=== PATIENT | female | born 1980 | race Two or more races ===

== ENCOUNTER 2025-02-18 20:20 | Inpatient (IN) | payer OTHER ==
[~2025-02-18] VITALS: Ht 154.9 cm; Wt 97.5 kg
[2025-02-18 20:46] LABS: LEUKOCYTE ESTERASE ,URINE NEGATIVE (Neg); NITRITES, URINE NEGATIVE (Neg); OCCULT BLOOD,URINE LARGE (Neg); UA COLLECTION TYPE CLN CATCH MIDSTREAM
[2025-02-18 20:51] LABS: MEAN PLATELET VOLUME 8.1 FL (7.4-10.4); RED CELL DISTRIBUTION WIDTH 13.8 % (11.5-14.5)
[2025-02-18 20:55] LABS: SQUAMOUS EPITHELIAL CELL,UR MODERATE /LPF (FEW)
[2025-02-18 22:35] LABS: CREATININE 1.28 MG/DL (0.40-0.90); TOTAL CARBON DIOXIDE 25.6 MMOL/L (24-32); eCRCL 43 ML/MIN; eGFR 46 ML/MIN
--- NOTE | 2025-02-18 23:41 | Physician Documentation ---
History of Present Illness Chief Complaint: Abdominal Pain w/vomiting Stated Complaint: NAUSEA Time Seen by MD: 23:40 OK to notify your PCP?: Yes Source: patient, RN/MD, RN notes reviewed, old records Mode of Arrival: POV Exam Limitations: no limitations HPI BED 10 This patient is a 44 y/o female who presents to ED with chief complaint of nausea/vomiting. Patient reports she felt fine yesterday and last night, but upon waking this morning felt nauseated. She states shortly after waking she has been having vomiting on and off most of the day today. In addition to her nausea , she has also been having right sided abdominal pain. She denies taking any Ozympic of GLP-1 medicatoins. Patient reports she does take be metformin and glipizide normally and has not missed any doses. She does note that she has history of diabetes since two kept her insulin last night however. Patient denies any associated symptoms at this time. Patient denies any alleviating or exacerbating factors. Medication Reconciliation Allergies: Coded Allergies: meloxicam (Verified Allergy, Mild, RASH, 02/18/25) Scheduled Glipizide (Glipizide Er), 2 TAB PO BID, (Reported) Insulin Glargine-Yfgn (Insulin Glargine-Yfgn), ACHS, (Reported) Metformin Hcl* (Metformin ER*), 2 TAB PO Q12H, (Reported) Past Medical History Past Medical History: Migraine, Diabetes Past Surgical History: noncontributory Smoking Status: Never smoker Alcohol Use: None Drug Use: none Review of Systems All Other Systems at this time: Reviewed and Negative Physical Exam Vital Signs: Temperature: 98.6, Source: Oral, Heart Rate: 74, Respiratory Rate: 16, BP: 146/89, Pulse Oximetry: 97, Weight: 97.500 Oxygen Flow Rate: 0 Physical Exam General: The patient is well developed, well nourished, nontoxic appearing and is in no acute distress. Skin: [place], warm and dry with no rashes. HEENT: Head was normocephalic and atraumatic. Eyes - pupils equal, round, reactive to light and accommodation. Extraocular movements were intact. Conjunctivae were nonicteric. Ears - bilateral tympanic membranes were normal. The mouth and oropharynx were clear with moist mucous membranes. There were no pharyngeal exudates or erythema. Neck: Supple and nontender. There was no jugular venous distention, lymphadenopathy, thyromegaly or masses. Chest: Clear to auscultation bilaterally without wheezes, rales or rhonchi. No accessory muscle use. No dullness to percussion. Heart: Rate regular and rhythmic. S1, S2. No murmurs. Palpation of the chest wall was normal. No rubs or thrills. Abdomen: Tenderness to palpation over the left with a lower quadrant. Otherwise soft and nondistended. Positive bowel sounds. No guarding or rebound. No hepatosplenomegaly or palpable masses. Extremities: No cyanosis, clubbing or edema. The patient moves all extremities. Pulses were equal and symmetric. Neurologic: Cranial nerves II-XII were intact. Sensation was intact to light touch throughout. Motor strength was 5/5 in all four extremities. Deep tendon reflexes were intact in both upper and lower extremities. Psychologic: The patient was oriented to person, place and time. The patient demonstrated appropriate judgement and insight. Progress Progress Note 0338: Spoke with [facility] concerning patient's care. [facility] has accepted and case number is #[id number] Results/Orders Reviewed/noted all lab results: Yes Results/Orders Orders - PIOTR ARCINIEGA MD Hcg, Ur Ql (02/18/25 20:31) Completed Orders - PIOTR ARCINIEGA MD Cbc/Diff (02/18/25 20:31) Lipase (02/18/25 20:31) CMP (02/18/25 20:31) Ua W/Microscopic, Cult If Ind (02/18/25 20:35) Vital Signs 02/18/25 02/18/25 20:27 22:23 Temp 98.6 Pulse 80 74 Resp 16 B/P (MAP) 190/91 146/89 (108) Pulse Ox 97 97 O2 Flow Rate 0 0 Laboratory Tests Test 02/18/25 20:35 02/18/25 20:42 Urine Specimen Description Cln catch midstream Urine Color Yellow Urine Clarity Slightly cloudy Urine pH 6.0 Urine Specific Upper Tract 1.020 Urine Protein Trace Urine Glucose (UA) >=1000 H Urine Ketones 40 H Urine Occult Blood Large H Urine Nitrite Negative Urine Bilirubin Negative Urine Urobilinogen 0.2 Urine Leukocyte Esterase Negative Urine RBC 20-50 Urine WBC 0-4 Urine Squamous Epithelial Cells Moderate Urine Bacteria Few Urine Culture Indicated Not ind Volume Urine Centrifuged 7 ml Urine Comment Low volume White Blood Count 15.8 H Red Blood Count 4.54 Hemoglobin 13.2 Hematocrit 38.4 Mean Corpuscular Volume 84.7 Mean Corpuscular Hemoglobin 29.0 Mean Corpuscular Hemoglobin Concent 34.2 Red Cell Distribution Width 13.8 Platelet Count 270 Mean Platelet Volume 8.1 Neutrophils (%) (Auto) 83.9 H Lymphocytes (%) (Auto) 11.4 L Monocytes (%) (Auto) 3.7 Eosinophils (%) (Auto) 0.5 Basophils (%) (Auto) 0.5 Neutrophils # (Auto) 13.2 H Lymphocytes # (Auto) 1.8 Monocytes # (Auto) 0.6 Eosinophils # (Auto) 0.1 Basophils # (Auto) 0.1 CBC Comment Sodium Level 133 L Potassium Level 4.1 Chloride Level 99 Carbon Dioxide Level 25.6 Anion Gap 8 Blood Urea Nitrogen 15 Creatinine 1.28 H Estimated GFR/1.73 m2 46 BUN/Creatinine Ratio 11.7 Glucose Level 250 H Calcium Level 9.1 Total Bilirubin 0.7 Aspartate Amino Transf (AST/SGOT) 51 H Alanine Aminotransferase (ALT/SGPT) 74 Alkaline Phosphatase 125 H Total Protein 7.8 Albumin 3.6 Globulin 4.2 Albumin/Globulin Ratio 0.9 L Lipase 110 H Chemistry Comments EKG/XRAY/CT/US/VASC/MRI CT : Interpreted By: both CT: abdomen/pelvis With Contrast?: No Impression [address] [address] [place] Patient: MRAISSA MARIE Medical Record: [id number] [facility] : 1980, Age: 44 Sex: Female Location: ER Patient Status: REG ER Service Date/Time: 02/18/2537 Ordering Physician: PIOTR ARCINIEGA MD Exam: CT ABDOMEN PELVIS Exam: CT CT ABDOMEN PELVIS W/ IV CONTRAST History: ABD PAIN Comparison Study: None TECHNIQUE: A digital lay out worker image was obtained. During the uneventful, intravenous administration of contrast material, multislice data acquisition was obtained through the abdomen and pelvis. The data set was subsequently reconstr ucted into multiplanar reformats. RADIATION DOSE: CTDI vol 32.13 mGy. DLP 1769.25 mGy.cm Findings: Liver: Unremarkable. Spleen: Unremarkable. Pancreas: Unremarkable. Gallbladder: Unremarkable. Adrenals: Unremarkable Kidneys: A punctate calcification is seen in the region of the distal left ureter near the ureterovesicular junction. There is minimal upstream left hydro ureteronephrosis and mild left perinephric stranding. There is a punctate nonobstructing left renal calculus. Too small to characterize lesions within the right kidney. No right hydronephrosis. Pelvic Viscera: Unremarkable. Vasculature: Unremarkable. Retroperitoneum: Unremarkable. Bowel: No bowel obstruction. The appendix is normal. Musculoskeletal: Unremarkable. Soft tissues: Unremarkable Lungs: Minimal basilar atelectasis. Impression: 1. Punctate calculus situated in the region of the distal left ureter near the ureterovesicular junction. Mild left perinephric stranding and minimal left hydroureteronephrosis. 2. Punctate nonobstructing bilateral renal calculi. 3. Additional findings as detailed. Electronically Signed by:GEORGIE DUNHAM MD Date & Time: 02/19/25110 Dictated by: GEORGIE DUNHAM MD Dictation date and time: 02/19/25110 Primary Care Provider: NO PRIMARY CARE PROVIDER cc: PIOTR ARCINIEGA MD ~ Departure Time of Disposition: 02:49 Disposition: 09 ADMITTED INPATIENT Admitted to Inpatient Unit: yes, to hospitalist Impression: Primary Impression: Kidney stones Additional Impressions: Renal colic Pancreatitis Qualified Codes: K85.90 - Acute pancreatitis without necrosis or infection, unspecified Nausea & vomiting Qualified Codes: R11.2 - Nausea with vomiting, unspecified Condition: Guarded Referrals: NO PRIMARY CARE PROVIDER (PCP) Signature Scribe Signature: Scribed for Piotr Arciniega MD by Payton Frederick. 02/19/25 01:22 Attestation: The note accurately reflects work and decisions made by me.Piotr Arciniega MD 02/18/25 23:41 PIOTR ARCINIEGA MD Feb 18, 2025 23:41
[2025-02-18] MEDS ORDERED: iohexol 300mg/ml 100ml inj. ONE (23:53)
[2025-02-19] MEDS: ondansetron/PF 4mg/2ml inj IV ONE (00:07)
[2025-02-19 00:09] LABS: URINE HCG NEGATIVE (NEG)
[2025-02-19 00:17] LABS: ETHANOL < 10 MG/DL (<10)
--- NOTE | 2025-02-19 01:14 | RADIOLOGY REPORT ---
Exam: CT CT ABDOMEN PELVIS W/ IV CONTRAST History: ABD PAIN Comparison Study: None TECHNIQUE: A digital steam frame operator image was obtained. During the uneventful, intravenous administration of c ontrast material, multislice data acquisition was obtained through the abdomen and pelvis. The data s et was subsequently reconstructed into multiplanar reformats. RADIATION DOSE: CTDI vol 32.13 mGy. DLP 1769.25 mGy.cm Findings: Liver: Unremarkable. Spleen: Unremarkable. Pancreas: Unremarkable. Gallbladder: Unremarkable. Adrenals: Unremarkable Kidneys: A punctate calcification is seen in the region of the distal left ureter near the ureteroves icular junction. There is minimal upstream left hydroureteronephrosis and mild left perinephric stra nding. There is a punctate nonobstructing left renal calculus. Too small to characterize lesions wi thin the right kidney. No right hydronephrosis. Pelvic Viscera: Unremarkable. Vasculature: Unremarkable. Retroperitoneum: Unremarkable. Bowel: No bowel obstruction. The appendix is normal. Musculoskeletal: Unremarkable. Soft tissues: Unremarkable Lungs: Minimal basilar atelectasis. Impression: 1. Punctate calculus situated in the region of the distal left ureter near the ureterovesicular junct ion. Mild left perinephric stranding and minimal left hydroureteronephrosis. 2. Punctate nonobstructing bilateral renal calculi. 3. Additional findings as detailed.
[2025-02-19] MEDS: normal saline 1000ML IV soln IVB ONE (01:51)
[2025-02-19] MEDS: normal saline 1000ML IV soln IV ONE (03:17)
[2025-02-19] MEDS: piperacillin/tazo 3.375gm/50ml 50 ML IV ONE (03:22)
[2025-02-19] MEDS: magnesium sulf-water 2g/50mL 50 ML IV ONE (03:22)
[2025-02-19] MEDS ORDERED: GLIP-297 PO (03:26)
[2025-02-19] MEDS ORDERED: METF-900 PO (03:27)
[2025-02-19] MEDS ORDERED: INSU100V55 (03:28)
[2025-02-19] MEDS ORDERED: ondansetron/PF 4mg/2ml inj IV PRN ×2 (04:05→04:55)
[2025-02-19] MEDS ORDERED: magnesium sulf-water 2g/50mL 50 ML IV PRN (04:05)
[2025-02-19] MEDS ORDERED: mag hydrox/Alum hydrox/simeth 30ml oral suspension PO PRN (04:05)
[2025-02-19] MEDS ORDERED: magnesium sulf-water 4G/100mL 100 ML IV PRN (04:05)
[2025-02-19] MEDS ORDERED: magnesium Cl slow-release 64mg tablet PO PRN (04:05)
[2025-02-19] MEDS ORDERED: magnesium hydroxide 30ml (MOM) UD suspension PO PRN (04:05)
[2025-02-19] MEDS ORDERED: potassium Cl 20 mEq SR tablet PO PRN ×2 (04:05)
[2025-02-19] MEDS ORDERED: potassium Cl 40MEQ/1/2NS 520ml 520 ML IV PRN (04:05)
[2025-02-19] MEDS ORDERED: glucagon, human recombinant 1mg kit SUBCUT PRN (04:30)
[2025-02-19] MEDS ORDERED: dextrose 50%-water 50ml dispensing syringe IV PRN ×2 (04:30)
[2025-02-19] MEDS ORDERED: DEXTROSE 15 GM of carb/4 tabs (each vial/BOTTLE has 4 tablets) PO PRN ×2 (04:30)
--- NOTE | 2025-02-19 04:34 | HISTORY AND PHYSICAL-Residence ---
History & Physical Providers to CC Resident Creating Document: JOSE ALFREDO RAYMUNDO RES ~ History of Present Illness Reason for Admit\Complaint: Abdominal pain History of Present Illness This is a 44-year-old female patient with a past medical history of insulin- dependent type 2 diabetes mellitus and migraines presented to the hospital with the complaints of abdominal pain associated with nausea and vomiting. The pain began yesterday in the morning, around the umbilicus with radiation to the left side into the back, and vomiting acidic contents. The patient is currently traveling to [place] with the family and is originally from [place]. Denies any fevers, chills, dysuria, hematuria. Denies prior history of similar complaints. Denies any new medications. Allergies: Coded Allergies: meloxicam (Verified Allergy, Mild, RASH, 02/18/25) Home Medications Home Medications Active Reported Insulin Glargine-Yfgn 100 Unit/Ml Vial ACHS Metformin ER* (Metformin HCl) 500 Mg Tab.sr.24h 2 Tab PO Q12H 30 Days Glipizide Er (Glipizide) 5 Mg Tab.er2.24 2 Tab PO BID Past Medical History Past Medical History Insulin-dependent type 2 diabetes mellitus, migraines Past Surgical History Surgical History Comment No past surgical history Past Social History Social History Comment Nonsmoker, no alcohol or illicit drug abuse. Lives at home with the family. 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 Ambulates on her own without assistive devices. Alcohol Use: None Drug Use: None ROS ROS As stated above in the HPI, otherwise all systems are reviewed and negative. Exam Vitals: Vital Signs Date Time Temp Pulse Resp B/P (MAP) Pulse Ox O2 Delivery O2 Flow Rate FiO2 02/19/25 03:30 65 16 118/76 (90) 99 0 02/18/25 20:27 98.6 General: General: Awake and Alert, no acute distress. Morbidly obese HEENT: Conjunctiva pink, Sclera clear, Mucus Membranes moist. Resp: Unlabored. Lungs clear to auscultation bilaterally. Heart: Regular Rate and rhythm, normal S1 and S2 without murmur, rub or gallop. Abdomen: Soft and non tender no organomegaly Extremities: No cyanosis,clubbing or edema. Skin: Warm and Dry. Diagnostic Data Last Recorded Lab Results: 02/18/25204102/18/252041 Advance Care Planning Advanced Care plannin - 30 Minutes Additional Plan Acute abdominal pain: Likely secondary to left hydroureteronephrosis Mild STACY likely secondary to above Nonobstructing renal calculus noted on the abdomen/pelvis CT Mild leukocytosis secondary to the above. Procalcitonin normal Lipase mildly elevated, pancreas unremarkable on imaging Continue IV fluids at a rate of 100 cc/hour NS. IV Zosyn for antibiotic therapy Zofran PRN for nausea/vomiting Follow up blood cultures and urine cultures Recommend straining of urine Consult urology in a.m. Acute kidney injury: Likely secondary to ATN Continue IVF NM renal scan ordered for left renal function Spot sodium, protein and creatinine ordered Closely monitor BMP Strict I&O monitoring Type 2 diabetes mellitus: Insulin-dependent Follow A1c Last insulin dose on Tuesday Glucosuria and ketonuria evident. No acidosis noted in the serum Likely the etiology behind the renal stone; suspect the renal stone to be uric acid in nature Education on outpatient alkalization of the urine Place the patient on hyperglycemia/hypoglycemia protocol- Lantus 20 units, medium dose sliding scale insulin Migraine headaches: PRN Tylenol Morphine to be used sparingly Lines: PIV Code status: Full code Diet: NPO until urology evaluation; carb controlled diet after DVT prophylaxis: SCDs; heparin after urology evaluation GI prophylaxis: Protonix daily Jose Alfredo Raymundo PGY3, Internal medicine resident Date of Service: Feb 19, 2025 Billing Provider: ZENY BARRETO MD, DEEPANJALI, RES Feb 19, 2025 04:34
[2025-02-19] MEDS: normal saline 1000ml 1,000 ML IV SCH (04:42)
[2025-02-19 06:49] LABS: APTT 26 SECONDS (22-32); INR 1.0 INR
[2025-02-19 07:30] VITALS: BP 128/73; PULSE 74; RESP 16; TEMP 97.9; O2SAT 98
[2025-02-19 07:35] VITALS: RESP 18
[2025-02-19] MEDS: INSULIN LISPRO 100 UNIT/ML INSULN.PEN MULTI-DOSE SQ SCH (07:35)
[2025-02-19] MEDS ORDERED: enoxaparin 40mg/0.4ml syringe SUBCUT SCH (08:00)
[2025-02-19] MEDS: K and/or MAG REPLACEMENT MC SCH (08:00)
[2025-02-19 08:30] LABS: URINE AMPHETAMINE SCREEN NEGATIVE (Neg); URINE BARBITUATE SCREEN NEGATIVE (Neg); URINE BENZODIAZEPINES SCREEN NEGATIVE (Neg); URINE CANNABINOID SCREEN NEGATIVE (Neg); URINE COCAINE SCREEN NEGATIVE (Neg); URINE METHADONE SCREEN NEGATIVE (Neg); URINE OPIATE SCREEN POSITIVE (Neg); URINE PHENCYCLIDINE SCREEN NEGATIVE (Neg)
[2025-02-19 09:27] LABS: MEAN PLATELET VOLUME 8.7 FL (7.4-10.4); RED CELL DISTRIBUTION WIDTH 14.1 % (11.5-14.5)
[2025-02-19 09:47] LABS: CREATININE 0.97 MG/DL (0.40-0.90); TOTAL CARBON DIOXIDE 26.1 MMOL/L (24-32); eCRCL 57 ML/MIN; eGFR 63 ML/MIN
[2025-02-19 10:00] VITALS: BP 119/73; PULSE 61; RESP 16; TEMP 97.9; O2SAT 97
[2025-02-19] MEDS: docusate sod 100mg capsule PO SCH (10:43)
[2025-02-19] MEDS ORDERED: piperacillin/tazo 3.375gm/50ml 50 ML IV SCH (11:00)
--- NOTE | 2025-02-19 17:25 | RADIOLOGY REPORT ---
ULTRASOUND ABDOMEN, LIMITED RIGHT UPPER QUADRANT: REASON FOR EXAM: ruq pain TECHNIQUE: Real-time sector scans in the transverse and longitudinal planes were obtained through th e right upper quadrant of the abdomen. FINDINGS: The liver is enlarged at 19.4 cm in length. The liver is diffusely echogenic. There is hep atopetal flow in the portal vein. There is no intrahepatic nor extrahepatic biliary ductal dilatation . The common bile duct measures 3 mm. No gallstones or sludge are identified. There is no gallblad radha wall thickening nor pericholecystic fluid. There is no sonographic Carvajal's sign. The visualized portion of the pancreas is unremarkable. The right kidney measures 12.4 cm. The right kidney is poorly visualized due to body habitus and bow el gas. There is no hydronephrosis of the right kidney. The visualized portions of the abdominal aorta demonstrate no evidence of aneurysmal dilatation. The visualized inferior vena cava is unremarkable. There is no free fluid identified in the right upper quadrant. IMPRESSION: Enlarged, hyperechoic liver. This may be secondary to steatosis or another diffuse hepatic process. Correlate clinically and with liver function tests. No sonographic evidence of gallbladder pathology.
[2025-02-19 18:00] VITALS: BP 110/69; PULSE 77; RESP 16; TEMP 98; O2SAT 96
[2025-02-19] MEDS: lactobacillus rhamnosus 10,000 MMU CELLS/CAPSULE PO SCH (21:06)
[2025-02-19] MEDS: insulin glargine (Lantus) pen - multi-dose SQ SCH (21:13)
[2025-02-19 22:00] VITALS: BP 143/82; PULSE 74; RESP 15; TEMP 97.6; O2SAT 98
[2025-02-20 05:50] LABS: MEAN PLATELET VOLUME 8.3 FL (7.4-10.4); RED CELL DISTRIBUTION WIDTH 14.1 % (11.5-14.5)
[2025-02-20 06:00] VITALS: BP 132/74; PULSE 77; RESP 15; TEMP 98.2; O2SAT 99
[2025-02-20 06:23] LABS: CHOL/HDL RATIO 5.8 (0.00-4.99); CREATININE 0.81 MG/DL (0.40-0.90); LDL CHOLESTEROL 112 MG/DL (50-100); TOTAL CARBON DIOXIDE 26.2 MMOL/L (24-32); eCRCL 68 ML/MIN; eGFR 78 ML/MIN
[2025-02-20] MEDS: CefTRIAXone/D5W-Rocephin 1gm 50 ML IV SCH (07:33)
[2025-02-20 10:00] VITALS: BP 130/74; PULSE 62; RESP 15; TEMP 97.9; O2SAT 98
[2025-02-20] MEDS: normal saline 1000ml 1,000 ML IV ONE (10:37)
[2025-02-20] MEDS ORDERED: CEFD300C3 PO (13:25)
[2025-02-20] MEDS ORDERED: tamsulosin capsule PO (13:25)
[2025-02-20] MEDS ORDERED: LACT1CAP26 PO (13:25)
--- NOTE | 2025-02-20 22:55 | DISCHARGE SUMMARY-Residence ---
Discharge Summary Providers to CC Resident Creating Document: ANGEESTRADALuis Daniel ESPINOZA, RES ~ Discharge Summary Admission Diagnosis: ACUTE PYELONEPHRITIS Hospital Course DATE OF ADMISSION: DATE OF DISCHARGE: Condition on DC: Stable Discharge Summary: Laboratory Tests Test 02/18/25 23:57 02/19/25 03:17 02/19/25 03:21 02/19/25 06:25 Magnesium Level 1.6 MG/DL Ethyl Alcohol Level < 10 MG/DL Lactic Acid Level 1.4 MMOL/L Procalcitonin 0.05 NG/ML Prothrombin Time 10.5 SECONDS INR International Normalized Ratio 1.0 INR Activated Partial Thromboplast Time 26 SECONDS Coagulation Comments Potassium Level 3.9 MMOL/L Hemoglobin A1c 10.7 % Test 02/19/25 07:40 02/19/25 07:53 02/19/25 09:00 02/19/25 12:31 Urine Opiates Screen Positive Urine Methadone Screen Negative Urine Fentanyl Screen Negative Urine Barbiturates Screen Negative Urine Phencyclidine Screen Negative Urine Amphetamines Screen Negative Urine Benzodiazepines Screen Negative Urine Cocaine Screen Negative Urine Cannabinoids Screen Negative Drug Screen Comment Glucometer 184 mg/dl 173 mg/dl White Blood Count 10.9 X10'3 Red Blood Count 4.14 X10'6 Hemoglobin 12.0 g/dl Hematocrit 35.7 % Mean Corpuscular Volume 86.4 FL Mean Corpuscular Hemoglobin 28.9 PG Mean Corpuscular Hemoglobin Concent 33.5 g/dL Red Cell Distribution Width 14.1 % Platelet Count 236 X10'3 Mean Platelet Volume 8.7 FL Neutrophils (%) (Auto) 68.6 % Lymphocytes (%) (Auto) 23.0 % Monocytes (%) (Auto) 5.6 % Eosinophils (%) (Auto) 1.7 % Basophils (%) (Auto) 1.1 % Neutrophils # (Auto) 7.5 X10'3 Lymphocytes # (Auto) 2.5 X10'3 Monocytes # (Auto) 0.6 X10'3 Eosinophils # (Auto) 0.2 X10'3 Basophils # (Auto) 0.1 X10'3 CBC Comment Sodium Level 135 MMOL/L Potassium Level 3.8 MMOL/L Chloride Level 103 MMOL/L Carbon Dioxide Level 26.1 MMOL/L Anion Gap 6 Blood Urea Nitrogen 14 MG/DL Creatinine 0.97 MG/DL Estimated GFR/1.73 m2 63 ML/MIN BUN/Creatinine Ratio 14.4 Glucose Level 189 MG/DL Calcium Level 8.3 MG/DL Total Bilirubin 0.6 MG/DL Aspartate Amino Transf (AST/SGOT) 39 U/L Alanine Aminotransferase (ALT/SGPT) 60 U/L Alkaline Phosphatase 98 IU/L Total Protein 6.8 G/DL Albumin 2.9 G/DL Globulin 3.9 G/DL Albumin/Globulin Ratio 0.7 Chemistry Comments Test 02/19/25 17:26 02/19/25 21:10 02/20/25 04:52 02/20/25 07:24 Glucometer 269 mg/dl 224 mg/dl 128 mg/dl White Blood Count 9.6 X10'3 Red Blood Count 4.04 X10'6 Hemoglobin 11.9 g/dl Hematocrit 35.2 % Mean Corpuscular Volume 87.0 FL Mean Corpuscular Hemoglobin 29.4 PG Mean Corpuscular Hemoglobin Concent 33.8 g/dL Red Cell Distribution Width 14.1 % Platelet Count 256 X10'3 Mean Platelet Volume 8.3 FL Neutrophils (%) (Auto) 63.0 % Lymphocytes (%) (Auto) 28.7 % Monocytes (%) (Auto) 5.5 % Eosinophils (%) (Auto) 2.2 % Basophils (%) (Auto) 0.6 % Neutrophils # (Auto) 6.1 X10'3 Lymphocytes # (Auto) 2.8 X10'3 Monocytes # (Auto) 0.5 X10'3 Eosinophils # (Auto) 0.2 X10'3 Basophils # (Auto) 0.1 X10'3 CBC Comment Sodium Level 138 MMOL/L Potassium Level 3.8 MMOL/L Chloride Level 105 MMOL/L Carbon Dioxide Level 26.2 MMOL/L Anion Gap 7 Blood Urea Nitrogen 10 MG/DL Creatinine 0.81 MG/DL Estimated GFR/1.73 m2 78 ML/MIN BUN/Creatinine Ratio 12.3 Glucose Level 133 MG/DL Calcium Level 7.9 MG/DL Albumin 3.0 G/DL Triglycerides Level 268 MG/DL Cholesterol Level 179 MG/DL LDL Cholesterol 112 MG/DL HDL Cholesterol 31 MG/DL Cholesterol/HDL Ratio 5.8 Lipase 248 U/L Chemistry Comments Date of Service: Feb 20, 2025 Billing Provider: PK LUIS MD, SOWMYA MANJARI, RES Feb 20, 2025 22:55
[2025-02-21] MEDS ORDERED: pantoprazole 40mg Tablet.DR PO SCH (07:30)
== END 2025-02-20 15:20 | disposition home or self-care (01) | DRG 438 ==
LOC: ER 20:21 → ED HOLD 02-19 04:08 → EDBEDREQ 02-19 06:34 → ORTHO 4S 02-19 07:09
PROVIDERS: ADMIT Surgery Surgical Critical Care; ATTEND Family Medicine
PROC: BW211ZZ Computerized Tomography (CT Scan) of Abdomen and Pelvis using Low Osmolar Contrast (ICD-10-PCS; principal; 2025-02-19)
DX: K85.90 Acute pancreatitis without necrosis or infection, unspecified (principal); N17.0 Acute kidney failure with tubular necrosis; N13.30 Unspecified hydronephrosis; N20.0 Calculus of kidney; D72.829 Elevated white blood cell count, unspecified; E11.9 Type 2 diabetes mellitus without complications; G43.909 Migraine, unspecified, not intractable, without status migrainosus; Z79.4 Long term (current) use of insulin; Z79.84 Long term (current) use of oral hypoglycemic drugs; Z88.8 Allergy status to other drugs, medicaments and biological substances
CPT/HCPCS: 36415; 74177; 76700; 80048; 80053; 80061; 80305; 80320; 81001; 81025; 82948; 83036; 83605; 83690; 83735; 84132; 84145; 85025; 85610; 85730; 87040; 99285; G0378; J0696; J1815; J2270; J2405; J2470; J2543; J7030; Q9967